=== PATIENT | female | born 1955 | race African-American/Black ===

== ENCOUNTER 2022-03-01 06:16 | Day surgery (SDC) | payer MEDICARE ==
[2022-02-28 08:31] VITALS: BMI 26.6
[2022-03-01] MEDS ORDERED: PROPOFOL 20 ML ONE ×2 (07:57)
[2022-03-01] MEDS ORDERED: Fentanyl 100 MCG/2 ML VIAL ONE (07:57)
[2022-03-01] MEDS ORDERED: Ondansetron PF 4 MG/2 ML Vial ONE (07:58)
== END 2022-03-01 09:57 | disposition home or self-care (01) ==
LOC: CSHSDC 06:16
PROVIDERS: ATTEND Internal Medicine Gastroenterology
PROC: 0DB68ZX Excision of Stomach, Via Natural or Artificial Opening Endoscopic, Diagnostic (ICD-10-PCS; principal; 2022-03-01)
PROC: 0DJD8ZZ Inspection of Lower Intestinal Tract, Via Natural or Artificial Opening Endoscopic (ICD-10-PCS; 2022-03-01)
DX: Z12.11 Encounter for screening for malignant neoplasm of colon (principal); K21.9 Gastro-esophageal reflux disease without esophagitis; K31.7 Polyp of stomach and duodenum; K57.30 Diverticulosis of large intestine without perforation or abscess without bleeding; K64.9 Unspecified hemorrhoids; K31.89 Other diseases of stomach and duodenum; K29.70 Gastritis, unspecified, without bleeding; K25.9 Gastric ulcer, unspecified as acute or chronic, without hemorrhage or perforation; I10 Essential (primary) hypertension; E11.9 Type 2 diabetes mellitus without complications; E78.5 Hyperlipidemia, unspecified; Z79.82 Long term (current) use of aspirin; Z79.899 Other long term (current) drug therapy
CPT/HCPCS: 43239; G0121; 88305; J2405; J2704; J3010

== ENCOUNTER 2023-02-12 09:56 | Outpatient (CLI) | payer MEDICARE | END 2023-02-12 09:57 | disposition home or self-care (01) | LOC: CSHMAMMO 09:56 | PROVIDERS: ATTEND Family Medicine | DX: Z12.31 Encounter for screening mammogram for malignant neoplasm of breast (principal) | CPT/HCPCS: 77063; 77067 ==

== ENCOUNTER 2024-02-14 09:34 | Outpatient (CLI) | payer MEDICARE | END 2024-02-14 09:35 | disposition home or self-care (01) | LOC: CSHMAMMO 09:34 | PROVIDERS: ATTEND Family Medicine | DX: Z12.31 Encounter for screening mammogram for malignant neoplasm of breast (principal) | CPT/HCPCS: 77063; 77067 ==

== ENCOUNTER 2024-03-19 10:05 | Outpatient (CLI) | payer MEDICARE | END 2024-03-19 10:06 | disposition home or self-care (01) | LOC: CSHRAD 10:05 | PROVIDERS: ATTEND Family Medicine | DX: M25.551 Pain in right hip (principal) ==

== ENCOUNTER 2024-04-06 13:29 | Outpatient (CLI) | payer MEDICARE | END 2024-04-06 13:30 | disposition home or self-care (01) | LOC: CSHCT 13:29 | PROVIDERS: ATTEND Family Medicine | DX: M25.551 Pain in right hip (principal); M16.0 Bilateral primary osteoarthritis of hip | CPT/HCPCS: 72192 ==

== ENCOUNTER 2025-02-16 11:56 | Outpatient (CLI) | payer MEDICARE | END 2025-02-16 11:57 | disposition home or self-care (01) | LOC: CSHMAMMO 11:56 | PROVIDERS: ATTEND Family Medicine | DX: Z12.31 Encounter for screening mammogram for malignant neoplasm of breast (principal) | CPT/HCPCS: 77063; 77067 ==